=== PATIENT | male | born 1980 | race Caucasian/White ===

== ENCOUNTER → 2023-01-30 15:02 | Outpatient (CLI) | payer OTHER, SELFPAY ==
--- NOTE | 2023-01-30 15:08 | DI.RAD.S_ITS ---
PROCEDURE: XR LUMBAR SPINE 2-3V INDICATIONS: right ankle pain, low back pain w/sciatica TECHNIQUE: 3 views of the lumbar spine were acquired. COMPARISON: None. FINDINGS: Bones: 5 [id number] vertebrae are present. There is normal bony alignment. No vertebral body compression fractures. No suspicious bony lesions. Mild multilevel degenerative endplate changes. Mild facet hypertrophy. Soft tissues: Overlying bowel gas pattern is normal. No suspicious soft tissue calcifications. IMPRESSION: Mild spondylosis. Approved by: Miguel Ren M.D. on 01/30/2023 at 21:19
--- NOTE | 2023-01-30 15:08 | DI.RAD.S_ITS ---
PROCEDURE: XR ANKLE RT MIN 3V INDICATIONS: right ankle pain, low back pain w/sciatica TECHNIQUE: 3 views of the ankle were acquired. COMPARISON: None. FINDINGS: Bones: No fractures or dislocations. Ankle mortise is normally aligned. No suspicious bony lesions. Mild midfoot osteoarthritis. Soft tissues: No tibiotalar joint effusion. Achilles tendon appears normal. IMPRESSION: Mild midfoot osteoarthritis. No acute osseous lesion. If symptoms and/or clinical suspicion for pathology persists, further assessment with advanced imaging (e.g. CT, MRI or bone scan) should be considered. Dictated by: Rea Covington MD, PhD on 01/30/2023 at 16:17 Approved by: Rea Covington MD, PhD on 01/30/2023 at 16:18
== END ==
PROVIDERS: PCP Family Medicine; Referring Provider Family Medicine; Visit Provider Family Medicine
DX: M47.816 Spondylosis without myelopathy or radiculopathy, lumbar region (principal); M54.40 Lumbago with sciatica, unspecified side; M25.571 Pain in right ankle and joints of right foot; M19.071 Primary osteoarthritis, right ankle and foot
CPT/HCPCS: 72100; 73610

== ENCOUNTER → 2023-03-10 11:43 | Outpatient (CLI) | payer OTHER, SELFPAY ==
--- NOTE | 2023-03-10 | DI.MRI.S_ITS ---
PROCEDURE: MR ANKLE RT WO CON INDICATIONS: Sprain of unspecified ligament of right ankle, initial encou TECHNIQUE: Noncontrast sagittal T1 spin echo and T2 fast spin echo with fat saturation, axial proton density fast spin echo and T2 fast spin echo with fat saturation, coronal T1 spin echo and T2 fast spin echo with fat saturation through the ankle/hindfoot. COMPARISON: [facility], CR, XR ANKLE RT MIN 3V, 01/30/2023, 15:39. FINDINGS: Image quality: Excellent. Bones and joints: Mild midfoot and hindfoot joint osteoarthritis is seen more notably involving talonavicular joint. There is marrow edema involving posterior lateral aspect of talar dome weight-bearing portion with suggestion of tiny osteochondral injuries in the area of edema measures up to 3 millimeter in size. No other area of abnormal marrow signal. No hindfoot coalition. Small amount of tibiotalar joint effusion is seen, no gross loose bodies. Medial structures: The posterior tibialis tendon appears thickened near its distal insertion with small amount of fluid distending tendon sheath. The flexor digitorum longus, and flexor hallucis longus tendons are intact. The posterior tibial neurovascular bundle appears normal within the tarsal tunnel, without extrinsic mass effect. The deep layer (anterior and posterior tibiotalar ligaments) and superficial layer (tibionavicular, tibiospring, and tibiocalcaneal ligaments) of the deltoid ligament appear normal. The spring ligament components (superomedial calcaneonavicular, medioplantar oblique calcaneonavicular, and inferoplantar longitudinal ligaments) are intact. Lateral structures: The anterior talofibular, calcaneofibular, and posterior talofibular ligaments appear thickened. More superiorly, the anterior and posterior tibiofibular ligaments also appear thickened. The tibiofibular syndesmosis is normal in width at 2 mm or less. The peroneus longus and brevis tendons are mildly thickened with small amount of fluid distending peroneus tendon sheath at the level of mid to distal calcaneus and calcaneocuboid joint. Adjacent bony peroneal tubercle and retrotrochlear prominence are normal in size. The sinus tarsi demonstrates normal fatty signal, without edema, fibrosis, or cyst formation. Visualized sinus tarsi components (cervical ligament, interosseous talocalcaneal ligament, roots of the inferior extensor retinaculum) appear normal. The calcaneonavicular and calcaneocuboid components of the bifurcate ligament appear intact. The dorsal calcaneocuboid ligament appears intact. Anterior structures: The tibialis anterior, extensor hallucis longus, and extensor digitorum longus tendons appear intact. The dorsal talonavicular ligament appears thickened. Posterior and plantar structures: Distal Achilles tendon is thickened with surrounding soft tissue edema at its posterior calcaneal insertion. Medial and lateral bands of the plantar fascia are of normal thickness. No abductor digiti quinti muscle atrophy to suggest Savage neuropathy. IMPRESSION: 1. Osteoarthritic changes in midfoot and hindfoot joints. Osteochondral injuries are noted in posterior lateral weight-bearing portion of talar dome measures up to 3 mm in size. No fracture or dislocation. Small amount of tibiotalar joint effusion, no gross loose bodies. 2. Posterior tibial tendinosis and low-grade tenosynovitis. Rest of the flexor tendons are intact. 3. Low-grade tenosynovitis involving peroneus tendons at the level of mid to distal calcaneus and calcaneocuboid joint. 4. [id number] lateral ankle ligament sprain. 5. Distal Achilles tendinosis at its posterior calcaneal insertion . No Achilles tendon rupture. 6. Mild dorsal talonavicular ligament sprain. Dictated by: Rk Enamorado M.D. on 03/10/2023 at 14:44 Approved by: Rk Enamorado M.D. on 03/10/2023 at 14:50
== END ==
PROVIDERS: PCP Family Medicine; Referring Provider Podiatrist; Visit Provider Podiatrist
DX: S93.491A Sprain of other ligament of right ankle, initial encounter (principal); M25.371 Other instability, right ankle; M65.871 Other synovitis and tenosynovitis, right ankle and foot; X58.XXXA Exposure to other specified factors, initial encounter
CPT/HCPCS: 73721